=== PATIENT | male | born 1940 | race Caucasian/White ===

== ENCOUNTER 2022-03-29 15:50 | Outpatient (CLI) | payer MEDICARE, SELFPAY ==
--- NOTE | ~2022-03-29 | US_ITS ---
EXAMINATION: US carotid duplex BI DATE: 03/29/2022 17:16 INDICATION: Personal history of circulatory disease TECHNIQUE: Grayscale, color Doppler, and pulsed Doppler images of the cervical carotid arteries were obtained. The degree of vessel stenosis is placed in one of the following categories: normal, <50%, 5 0-69%, >=70% but less than near-occlusion, near-occlusion, or total occlusion. Note that percent sten osis relative to normal distal artery lumen diameter is indirectly measured from velocity measurement s as described by Behzad, et al. Radiology 2003; [id number]:[id number]. Notes: Normal: Peak systolic velocity <125 centimeters/sec and no plaque <50%. Peak systolic velocity <125 ( EDV <40; ICA/CCA PSV ratio <2.0; used these factors only a tandem lesions or low cardiac output or co ntralateral disease) 50-69 %: PSV 125-230 (EDV 40-100; ratio 2-4) >= 70% but less than near occlusion: PSV greater than 230 (EDV > 100; ratio> 4.0) Near Occlusion: PSV that is variable; markedly narrowed lumen Occlusion: Absent flow on color/spectral Doppler and no lumen on allred scale. COMPARISON: None. FINDINGS: RIGHT: The right common carotid artery (CCA) peak systolic velocity (PSV) is 79 cm/s. The right internal car otid artery (ICA) PSV is 94 cm/s. The right ICA end-diastolic velocity (EDV) is 20 cm/s. The right IC A/CCA PSV ratio is 1.2. The external carotid artery (ECA) PSV is 107 cm/s. There is antegrade flow in the right vertebral artery. LEFT: The left CCA PSV is 77 cm/s. The left ICA PSV is 153 cm/s. The left ICA EDV is 38 cm/s. The left ICA/ CCA PSV ratio is 2.0. The ECA PSV is 93 cm/s. There is antegrade flow in the left vertebral artery. IMPRESSION: 1. Less than 50% stenosis in the right internal carotid artery by sonographic criteria. 2. 50-69% stenosis in the left internal carotid artery by sonographic criteria. Reviewed, dictated and finalized at location A. IMPRESSION: 1. Less than 50% stenosis in the right internal carotid artery by sonographic c riteria. 2. 50-69% stenosis in the left internal carotid artery by sonographic criteria.
== END 2022-03-29 15:51 | disposition home or self-care (01) ==
PROVIDERS: PCP Internal Medicine; Visit Provider Internal Medicine
DX: I65.23 Occlusion and stenosis of bilateral carotid arteries (principal); Z86.79 Personal history of other diseases of the circulatory system
CPT/HCPCS: 93880